=== PATIENT | male | born 1945 | race Caucasian/White ===

== ENCOUNTER 2020-10-13 16:17 | Inpatient (IN) | payer MEDICARE ==
[~2020-10-13] VITALS: Ht 165.1 cm; Wt 80.8 kg
--- NOTE | 2020-10-13 16:34 | NUR ---
TASK RN: PT BIB FRIEND VIA POV. PER PT "5CM INTRA ABDOMNINAL ABCESS. 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 PAIN IN PUBIC AREA SINCE "LAST ." NO ABDOMINAL SURGICAL HISTORY. PT RESTING IN [place] [facility] AT THIS TIME, MONITORING IN PLACE, NO NEEDS PER PT, WCTM.
--- NOTE | 2020-10-13 16:50 | NUR ---
REPORT FROM JHON MARINELLI.
--- NOTE | 2020-10-13 17:01 | NUR ---
PT RESTING COMFORTABLY IN [facility]. WARM BLANKETS PROVIDED. CALL LIGHT WITHIN REACH. VITALS UPDATED. AWAITING PROVIDER FOR EVALUATION.
[2020-10-13] MEDS ORDERED: METRONIDAZOLE PMX 500MG/100ML 100 ML IV ONE (18:30)
[2020-10-13] MEDS ORDERED: CEFOTETAN PMX 1GM/50ML 50 ML IV ONE (18:30)
--- NOTE | 2020-10-13 18:57 | NUR ---
report to Estella MARINELLI.
--- NOTE | 2020-10-13 18:58 | NUR ---
BEDSIDE REPORT FROM LOURDES/ GILES [facility] AND GRAVEL ROOFER OF CARE AT THIS TIME
--- NOTE | 2020-10-13 19:01 | NUR ---
CONVERSATION WITH MARCO, ADMITTING PROVIDER. STS WILL ORDER CULTURES PRIOR TO ABX START. ORDERING AT THIS TIME.
--- NOTE | 2020-10-13 19:22 | NUR ---
ABX STARTED AT THIS TIME CULTURES DRAWN X2
--- NOTE | 2020-10-13 19:34 | NUR ---
REPORT TO POLY MARINELLI PT READY FOR TRANSFER TO ROOM 348 AT THIS TIME
[2020-10-13 19:47] VITALS: BP 177/89
[2020-10-13] MEDS ORDERED: SODIUM CHLORIDE 0.9% 1,000 ML IV SCH (20:00)
[2020-10-13] MEDS: METRONIDAZOLE PMX 500MG/100ML 100 ML IV SCH (20:24)
[2020-10-13 20:34] VITALS: BP 165/82
[2020-10-13] MEDS: hydrALAzine 20 MG/ML, 1ML IV PRN (20:40)
[2020-10-13 21:20] VITALS: BP 156/72
[2020-10-13 21:45] LABS: MICROSCOPIC INDICATED
[2020-10-13] MEDS ORDERED: OMNIPAQUE 350 MG/ML, 100ML BOTTLE ONE (22:23)
[2020-10-13] MEDS: morphine SULFATE 10 MG/ML, 1ML IVPush PRN (22:38)
[2020-10-14 01:08] VITALS: BP 157/71
[2020-10-14] MEDS: METRONIDAZOLE PMX 500MG/100ML 100 ML IV SCH ×3 (04:40→21:09)
[2020-10-14 06:02] LABS: BASOPHILS % (AUTO) 1 % (0-1); EOSINOPHILS % (AUTO) 6 % (1-7); LYMPHOCYTES % (AUTO) 22 % (22-44); MEAN CORPUSCULAR HEMOGLOBIN 28.1 pg (27.5-34.5); MEAN CORPUSCULAR HGB CONC 33.9 g/dL (33.2-36.2); MEAN PLATELET VOLUME 7.3 fL (7.4-10.4); MONOCYTES % (AUTO) 7 % (2-9); NEUTROPHILS % (AUTO) 64 % (42-75); PLATELET COUNT 436 x10^3/uL (130-400); RED BLOOD COUNT 3.99 x10^6/uL (4.38-5.82); RED CELL DISTRIBUTION WIDTH 14.9 % (9.4-14.8)
[2020-10-14 06:05] LABS: MD NO
[2020-10-14 06:18] LABS: ANION GAP 10 mmol/L (5-15); CALCIUM 8.9 mg/dL (8.5-10.1); CHLORIDE 108 mmol/L (98-107)
[2020-10-14 06:19] LABS: CREATININE 0.88 mg/dL (0.7-1.3)
[2020-10-14] MEDS: morphine SULFATE 10 MG/ML, 1ML IVPush PRN ×2 (06:27→13:08)
[2020-10-14 07:07] VITALS: BP 155/77
[2020-10-14] MEDS: CARVEDILOL 3.125 MG TABLET PO SCH ×2 (07:52→17:22)
[2020-10-14] MEDS: CEFOTETAN PMX 1GM/50ML 50 ML IV SCH ×2 (07:52→19:41)
[2020-10-14] MEDS: ENOXAPARIN 40 MG/0.4 ML SQ SCH (07:53)
[2020-10-14 12:52] VITALS: BP 161/78
[2020-10-14 17:21] VITALS: BP 159/70
[2020-10-14 18:37] LABS: OCCULT BLOOD POSITIVE (NEGATIVE)
[2020-10-14 19:10] VITALS: BP 139/82
[2020-10-15] MEDS: ACETAMINOPHEN 325 MG TABLET PO PRN (00:50)
[2020-10-15 00:51] VITALS: BP 157/78
[2020-10-15] MEDS: METRONIDAZOLE PMX 500MG/100ML 100 ML IV SCH ×3 (04:32→20:56)
[2020-10-15 05:37] LABS: BASOPHILS % (AUTO) 2 % (0-1); EOSINOPHILS % (AUTO) 7 % (1-7); LYMPHOCYTES % (AUTO) 29 % (22-44); MEAN PLATELET VOLUME 7.3 fL (7.4-10.4); MONOCYTES % (AUTO) 10 % (2-9); NEUTROPHILS % (AUTO) 53 % (42-75); PLATELET COUNT 391 x10^3/uL (130-400); RED BLOOD COUNT 3.92 x10^6/uL (4.38-5.82)
[2020-10-15 05:39] LABS: MD NO
[2020-10-15 05:46] LABS: ALANINE AMINOTRANSFERASE 11 U/L (12-78); ALBUMIN 2.6 g/dL (3.4-5.0); ANION GAP 9 mmol/L (5-15); CALCIUM 8.4 mg/dL (8.5-10.1); CHLORIDE 111 mmol/L (98-107); CREATININE 0.91 mg/dL (0.7-1.3)
[2020-10-15 05:50] LABS: ALKALINE PHOSPHATASE 68 U/L (45-117); BILIRUBIN,TOTAL 0.2 mg/dL (0.2-1.0); TOTAL PROTEIN 5.6 g/dL (6.4-8.2)
[2020-10-15] MEDS: CARVEDILOL 3.125 MG TABLET PO SCH (06:07)
[2020-10-15] MEDS: SODIUM CHLORIDE 0.9% 1,000 ML IV SCH (07:50)
[2020-10-15] MEDS: ENOXAPARIN 40 MG/0.4 ML SQ SCH (07:51)
[2020-10-15] MEDS: CEFOTETAN PMX 1GM/50ML 50 ML IV SCH ×2 (07:51→19:55)
[2020-10-15 07:59] VITALS: BP 158/84
[2020-10-15 12:53] VITALS: BP 175/77
[2020-10-15] MEDS: CARVEDILOL 6.25 MG TABLET PO SCH (18:12)
[2020-10-15 18:13] VITALS: BP 152/80
[2020-10-16] MEDS: SODIUM CHLORIDE 0.9% 1,000 ML IV SCH ×2 (00:15→17:10)
[2020-10-16] MEDS: ACETAMINOPHEN 325 MG TABLET PO PRN ×2 (00:20→20:30)
[2020-10-16 00:48] VITALS: BP 142/76
[2020-10-16] MEDS: METRONIDAZOLE PMX 500MG/100ML 100 ML IV SCH ×3 (04:25→20:31)
[2020-10-16] MEDS: CARVEDILOL 6.25 MG TABLET PO SCH ×2 (05:38→17:06)
[2020-10-16 07:00] VITALS: BP 137/71
[2020-10-16] MEDS: CEFOTETAN PMX 1GM/50ML 50 ML IV SCH ×2 (07:49→19:31)
[2020-10-16] MEDS: ENOXAPARIN 40 MG/0.4 ML SQ SCH ×2 (07:49→23:26)
[2020-10-16] MEDS: MAGNESIUM CITRATE 300ML ORAL SOL PO SCH ×2 (12:41→18:00)
[2020-10-16 13:47] VITALS: BP 167/90
[2020-10-16] MEDS: hydrALAzine 20 MG/ML, 1ML IV PRN (13:59)
[2020-10-16 15:41] VITALS: BP 163/88
[2020-10-16] MEDS: ONDANSETRON 2MG/ML, 2ML IVPush PRN (15:57)
[2020-10-16 17:06] VITALS: BP 142/79
[2020-10-16 19:42] VITALS: BP 135/79
[2020-10-17 00:05] VITALS: BP 120/70
[2020-10-17] MEDS: METRONIDAZOLE PMX 500MG/100ML 100 ML IV SCH ×3 (04:07→22:49)
[2020-10-17] MEDS: morphine SULFATE 10 MG/ML, 1ML IVPush PRN (04:07)
[2020-10-17] MEDS: CARVEDILOL 6.25 MG TABLET PO SCH ×2 (05:59→17:04)
[2020-10-17 06:59] VITALS: BP 128/72
[2020-10-17 07:37] LABS: INTERNATIONAL NORMALIZED RATIO 1.2 (0.93-1.1); PROTHROMBIN TIME 12.8 Seconds (9.6-11.5)
[2020-10-17] MEDS: CEFOTETAN PMX 1GM/50ML 50 ML IV SCH ×2 (08:24→20:22)
[2020-10-17] MEDS ORDERED: CHLORHEXIDINE 15 ML UDC ONE (09:43)
[2020-10-17] MEDS ORDERED: CHLORHEXIDINE 15 ML UDC MM STA (09:44)
[2020-10-17] MEDS ORDERED: FENTANYL PF 250 MCG/5ML ONE (10:33)
[2020-10-17] MEDS ORDERED: MIDAZOLAM 1 MG/ML, 2ML ONE (10:33)
[2020-10-17] MEDS: SODIUM CHLORIDE 0.9% 1,000 ML IV SCH ×2 (10:40→20:23)
[2020-10-17] MEDS ORDERED: HYDROmorphone 1 MG/ML, 1ML INJ IVPush PRN (11:30)
[2020-10-17] MEDS ORDERED: MEPERIDINE/PF 25MG/0.5ML IVPush PRN (11:30)
[2020-10-17] MEDS ORDERED: OXYcodone 5 MG/5 ML ORAL.SOL UDC PO PRN (11:30)
[2020-10-17] MEDS ORDERED: DIAZEPAM 5 MG/ML, 2ML IVPush PRN (11:30)
[2020-10-17] MEDS ORDERED: ONDANSETRON 2MG/ML, 2ML IVPush PRN (11:30)
[2020-10-17] MEDS ORDERED: hydrALAzine 20 MG/ML, 1ML IV PRN (11:30)
[2020-10-17] MEDS ORDERED: PROMETHAZINE 25 MG/ML, 1ML IVPush PRN (11:30)
[2020-10-17] MEDS ORDERED: ACETAMINOPHEN 325 MG TABLET PO PRN (11:30)
[2020-10-17] MEDS ORDERED: DIPHENHYDRAMINE 50 MG/ML, 1ML IVPush PRN (11:30)
[2020-10-17] MEDS ORDERED: LABETALOL 5MG/ML, 20ML IV PRN (11:30)
[2020-10-17] MEDS ORDERED: ONDANSETRON 2MG/ML, 2ML ONE (11:46)
[2020-10-17] MEDS ORDERED: CEFOTETAN 2 GM ONE (11:46)
[2020-10-17] MEDS ORDERED: LIDOCAINE-MPF 2% ,5ML ONE (11:46)
[2020-10-17] MEDS ORDERED: ROCURONIUM 10MG/ML,5ML ONE (11:46)
[2020-10-17] MEDS ORDERED: PROPOFOL 10 MG/ML, 20ML ONE (11:46)
[2020-10-17] MEDS ORDERED: NEOSTIGMINE 1 MG/ML, 10ML ONE (11:47)
[2020-10-17] MEDS ORDERED: GLYCOPYRROLATE 0.2MG/1ML, 5ML ONE (11:47)
[2020-10-17] MEDS ORDERED: FENTANYL PF 100 MCG/2ML ONE (12:13)
[2020-10-17] MEDS ORDERED: OXYcodone 5 MG/5 ML ORAL.SOL UDC ONE (12:13)
[2020-10-17] MEDS: FENTANYL PF 100 MCG/2ML IV PRN ×2 (12:15→12:20)
[2020-10-17] MEDS: ACETAMINOPHEN 325 MG TABLET PO PRN (12:30)
[2020-10-17 14:26] VITALS: BP 144/73
[2020-10-17 18:50] VITALS: BP 120/74
[2020-10-18 00:05] VITALS: BP 127/69
[2020-10-18 03:34] VITALS: BP 131/78
[2020-10-18] MEDS: CARVEDILOL 6.25 MG TABLET PO SCH ×2 (06:25→16:34)
[2020-10-18] MEDS: METRONIDAZOLE PMX 500MG/100ML 100 ML IV SCH ×3 (06:25→23:01)
[2020-10-18 06:55] VITALS: BP 148/72
[2020-10-18] MEDS: CEFOTETAN PMX 1GM/50ML 50 ML IV SCH ×2 (07:48→20:57)
[2020-10-18] MEDS: ENOXAPARIN 40 MG/0.4 ML SQ SCH (07:48)
[2020-10-18] MEDS: ONDANSETRON 2MG/ML, 2ML IVPush PRN ×2 (10:09→16:29)
[2020-10-18 14:16] VITALS: BP 168/80
[2020-10-18] MEDS: SODIUM CHLORIDE 0.9% 1,000 ML IV SCH (14:17)
[2020-10-18 16:34] VITALS: BP 174/84
[2020-10-18] MEDS: ACETAMINOPHEN 325 MG TABLET PO SCH ×2 (16:58→23:02)
[2020-10-18 18:37] VITALS: BP 138/75
[2020-10-19] MEDS: ONDANSETRON 2MG/ML, 2ML IVPush PRN ×2 (00:14→06:08)
[2020-10-19 03:07] VITALS: BP 158/85
[2020-10-19] MEDS: ACETAMINOPHEN 325 MG TABLET PO SCH ×4 (06:07→21:06)
[2020-10-19] MEDS: CARVEDILOL 6.25 MG TABLET PO SCH (06:08)
[2020-10-19] MEDS: CALCIUM CARBONATE 500 MG TAB.CHEW PO PRN ×2 (06:09→16:59)
[2020-10-19] MEDS: METRONIDAZOLE PMX 500MG/100ML 100 ML IV SCH ×3 (06:11→23:16)
[2020-10-19 07:15] VITALS: BP 146/73
[2020-10-19] MEDS: ENOXAPARIN 40 MG/0.4 ML SQ SCH (07:59)
[2020-10-19] MEDS: CEFOTETAN PMX 1GM/50ML 50 ML IV SCH ×2 (07:59→21:05)
[2020-10-19] MEDS: SODIUM CHLORIDE 0.9% 1,000 ML IV SCH (08:00)
[2020-10-19 10:42] LABS: BASOPHILS % (AUTO) 1 % (0-1); EOSINOPHILS % (AUTO) 0 % (1-7); LYMPHOCYTES % (AUTO) 11 % (22-44); MD NO; MEAN CORPUSCULAR HGB CONC 33.7 g/dL (33.2-36.2); MEAN PLATELET VOLUME 7.9 fL (7.4-10.4); MONOCYTES % (AUTO) 6 % (2-9); NEUTROPHILS % (AUTO) 82 % (42-75); PLATELET COUNT 358 x10^3/uL (130-400); RED BLOOD COUNT 4.07 x10^6/uL (4.38-5.82); RED CELL DISTRIBUTION WIDTH 16.4 % (9.4-14.8)
[2020-10-19 10:49] LABS: ALANINE AMINOTRANSFERASE 9 U/L (12-78); ALBUMIN 2.3 g/dL (3.4-5.0); ANION GAP 7 mmol/L (5-15); CALCIUM 8.7 mg/dL (8.5-10.1); CHLORIDE 108 mmol/L (98-107); CREATININE 1.02 mg/dL (0.7-1.3)
[2020-10-19 10:51] LABS: ALKALINE PHOSPHATASE 53 U/L (45-117); BILIRUBIN,TOTAL 0.2 mg/dL (0.2-1.0); TOTAL PROTEIN 5.2 g/dL (6.4-8.2)
[2020-10-19] MEDS: FAMOTIDINE 10 MG TAB PO SCH ×2 (11:45→21:09)
[2020-10-19] MEDS ORDERED: TAMS-11 PO (13:00)
[2020-10-19] MEDS ORDERED: CIPR250T27 PO (13:00)
[2020-10-19] MEDS ORDERED: LOSA50TA14 PO (13:00)
[2020-10-19] MEDS: POTASSIUM CHLORIDE 20 MEQ in SODIUM CHLORIDE 0.45% 1,000 ML IV SCH (13:19)
[2020-10-19 14:05] VITALS: BP 158/79
[2020-10-19] MEDS: CARVEDILOL 12.5 MG TABLET PO SCH (16:57)
[2020-10-19 19:22] VITALS: BP 149/77
[2020-10-20 01:14] VITALS: BP 159/78
[2020-10-20] MEDS: ACETAMINOPHEN 325 MG TABLET PO SCH ×4 (03:48→20:31)
[2020-10-20 05:41] LABS: BASOPHILS % (AUTO) 1 % (0-1); EOSINOPHILS % (AUTO) 2 % (1-7); LYMPHOCYTES % (AUTO) 13 % (22-44); MEAN CORPUSCULAR HEMOGLOBIN 28.3 pg (27.5-34.5); MEAN CORPUSCULAR HGB CONC 34.3 g/dL (33.2-36.2); MEAN PLATELET VOLUME 7.9 fL (7.4-10.4); MONOCYTES % (AUTO) 8 % (2-9); NEUTROPHILS % (AUTO) 76 % (42-75); PLATELET COUNT 334 x10^3/uL (130-400); RED BLOOD COUNT 3.76 x10^6/uL (4.38-5.82); RED CELL DISTRIBUTION WIDTH 16.8 % (9.4-14.8)
[2020-10-20 05:42] LABS: MD NO
[2020-10-20] MEDS: CARVEDILOL 12.5 MG TABLET PO SCH ×2 (05:45→18:09)
[2020-10-20] MEDS: CALCIUM CARBONATE 500 MG TAB.CHEW PO PRN (05:45)
[2020-10-20] MEDS: POTASSIUM CHLORIDE 20 MEQ in SODIUM CHLORIDE 0.45% 1,000 ML IV SCH ×2 (05:45→23:00)
[2020-10-20 05:53] LABS: ALBUMIN 2.1 g/dL (3.4-5.0); ANION GAP 8 mmol/L (5-15); CALCIUM 8.6 mg/dL (8.5-10.1); CHLORIDE 106 mmol/L (98-107)
[2020-10-20 05:56] LABS: ALANINE AMINOTRANSFERASE 7 U/L (12-78); ALKALINE PHOSPHATASE 46 U/L (45-117); BILIRUBIN,TOTAL 0.3 mg/dL (0.2-1.0); CREATININE 0.79 mg/dL (0.7-1.3); TOTAL PROTEIN 4.8 g/dL (6.4-8.2)
[2020-10-20] MEDS: ONDANSETRON 2MG/ML, 2ML IVPush PRN (07:01)
[2020-10-20] MEDS: METRONIDAZOLE PMX 500MG/100ML 100 ML IV SCH ×3 (07:01→23:00)
[2020-10-20 07:56] VITALS: BP 160/91
[2020-10-20] MEDS: ENOXAPARIN 40 MG/0.4 ML SQ SCH (08:00)
[2020-10-20] MEDS: POTASSIUM CHLORIDE 20 MEQ TAB.ER.PRT PO SCH ×3 (08:00→15:35)
[2020-10-20] MEDS: FAMOTIDINE 10 MG TAB PO SCH ×2 (09:36→20:30)
[2020-10-20] MEDS: MORPHINE SULFATE 4 MG/ML, 1ML IVPush PRN (09:36)
[2020-10-20] MEDS: CEFOTETAN PMX 1GM/50ML 50 ML IV SCH ×2 (09:37→20:30)
[2020-10-20 12:08] VITALS: BP 144/79
[2020-10-20 15:33] VITALS: BP 169/79
[2020-10-20 18:06] VITALS: BP 157/69
[2020-10-20 19:31] VITALS: BP 125/74
[2020-10-21] VITALS (7 sets, daily range): BP systolic 139–154; BP diastolic 69–92
[2020-10-21] MEDS: ACETAMINOPHEN 325 MG TABLET PO SCH ×5 (03:15→23:07)
[2020-10-21 05:20] LABS: BASOPHILS % (AUTO) 1 % (0-1); EOSINOPHILS % (AUTO) 1 % (1-7); LYMPHOCYTES % (AUTO) 10 % (22-44); MEAN CORPUSCULAR HGB CONC 35.1 g/dL (33.2-36.2); MEAN PLATELET VOLUME 7.8 fL (7.4-10.4); MONOCYTES % (AUTO) 9 % (2-9); NEUTROPHILS % (AUTO) 80 % (42-75); PLATELET COUNT 334 x10^3/uL (130-400); RED CELL DISTRIBUTION WIDTH 16.7 % (9.4-14.8)
[2020-10-21 05:22] LABS: MD NO
[2020-10-21 05:31] LABS: ANION GAP 5 mmol/L (5-15); CALCIUM 8.5 mg/dL (8.5-10.1); CHLORIDE 106 mmol/L (98-107); CREATININE 0.73 mg/dL (0.7-1.3)
[2020-10-21] MEDS: CARVEDILOL 12.5 MG TABLET PO SCH ×2 (06:30→16:48)
[2020-10-21] MEDS: METRONIDAZOLE PMX 500MG/100ML 100 ML IV SCH (06:30)
[2020-10-21] MEDS: FAMOTIDINE 10 MG TAB PO SCH ×2 (08:15→20:25)
[2020-10-21] MEDS: CEFOTETAN PMX 1GM/50ML 50 ML IV SCH (08:15)
[2020-10-21] MEDS: ENOXAPARIN 40 MG/0.4 ML SQ SCH (08:16)
[2020-10-21] MEDS: HYDROcodone/APAP 5/325 TABLET PO PRN ×3 (11:29→21:05)
[2020-10-21] MEDS: POTASSIUM CHLORIDE 20 MEQ in SODIUM CHLORIDE 0.45% 1,000 ML IV SCH (16:53)
[2020-10-21] MEDS: ONDANSETRON 2MG/ML, 2ML IVPush PRN (21:01)
[2020-10-21] MEDS: CALCIUM CARBONATE 500 MG TAB.CHEW PO PRN (21:15)
[2020-10-21] MEDS: morphine SULFATE 10 MG/ML, 1ML IVPush PRN ×2 (23:07→23:28)
[2020-10-22] MEDS: morphine SULFATE 10 MG/ML, 1ML IVPush PRN ×2 (02:42→05:36)
[2020-10-22] MEDS: ACETAMINOPHEN 325 MG TABLET PO SCH ×4 (05:37→23:00)
[2020-10-22] MEDS: CARVEDILOL 12.5 MG TABLET PO SCH ×2 (05:37→17:13)
[2020-10-22] MEDS: POTASSIUM CHLORIDE 20 MEQ in SODIUM CHLORIDE 0.45% 1,000 ML IV SCH (06:15)
[2020-10-22 07:27] VITALS: BP 139/77
[2020-10-22 07:57] LABS: BASOPHILS % (AUTO) 1 % (0-1); EOSINOPHILS % (AUTO) 0 % (1-7); LYMPHOCYTES % (AUTO) 17 % (22-44); MEAN CORPUSCULAR HEMOGLOBIN 28.1 pg (27.5-34.5); MEAN CORPUSCULAR HGB CONC 34.1 g/dL (33.2-36.2); MEAN PLATELET VOLUME 7.9 fL (7.4-10.4); MONOCYTES % (AUTO) 9 % (2-9); NEUTROPHILS % (AUTO) 73 % (42-75); PLATELET COUNT 336 x10^3/uL (130-400); RED BLOOD COUNT 3.49 x10^6/uL (4.38-5.82); RED CELL DISTRIBUTION WIDTH 17.5 % (9.4-14.8)
[2020-10-22] MEDS ORDERED: POTASSIUM CHLORIDE 20 MEQ TAB.ER.PRT PO SCH (08:00)
[2020-10-22 08:02] LABS: MD NO
[2020-10-22 08:08] LABS: ANION GAP 7 mmol/L (5-15); CALCIUM 8.7 mg/dL (8.5-10.1); CHLORIDE 105 mmol/L (98-107); CREATININE 0.67 mg/dL (0.7-1.3)
[2020-10-22] MEDS: FAMOTIDINE 10 MG TAB PO SCH ×2 (08:50→21:00)
[2020-10-22] MEDS: ENOXAPARIN 40 MG/0.4 ML SQ SCH (08:52)
[2020-10-22 14:18] VITALS: BP 110/74
[2020-10-22 17:11] VITALS: BP 160/80
[2020-10-22 20:52] VITALS: BP 176/86
[2020-10-22] MEDS: HYDROcodone/APAP 5/325 TABLET PO PRN (21:00)
[2020-10-22] MEDS: CALCIUM CARBONATE 500 MG TAB.CHEW PO PRN (21:01)
[2020-10-23] MEDS ORDERED: ACETAMINOPHEN 650 MG/20.3 ML UDC ONE (00:30)
[2020-10-23 00:35] VITALS: BP 170/90
[2020-10-23] MEDS: ACETAMINOPHEN 325 MG TABLET PO SCH ×4 (05:08→21:35)
[2020-10-23] MEDS: CARVEDILOL 12.5 MG TABLET PO SCH (05:08)
[2020-10-23] MEDS: HYDROcodone/APAP 5/325 TABLET PO PRN ×2 (05:09→14:51)
[2020-10-23 05:27] LABS: BASOPHILS % (AUTO) 1 % (0-1); EOSINOPHILS % (AUTO) 7 % (1-7); LYMPHOCYTES % (AUTO) 29 % (22-44); MEAN CORPUSCULAR HGB CONC 34.1 g/dL (33.2-36.2); MONOCYTES % (AUTO) 9 % (2-9); NEUTROPHILS % (AUTO) 55 % (42-75); PLATELET COUNT 360 x10^3/uL (130-400); RED BLOOD COUNT 3.59 x10^6/uL (4.38-5.82); RED CELL DISTRIBUTION WIDTH 17.5 % (9.4-14.8)
[2020-10-23 05:30] LABS: MD NO
[2020-10-23 05:36] LABS: ANION GAP 7 mmol/L (5-15); CALCIUM 8.5 mg/dL (8.5-10.1); CHLORIDE 107 mmol/L (98-107); CREATININE 0.72 mg/dL (0.7-1.3)
[2020-10-23] MEDS ORDERED: CARVEDILOL 12.5 MG TABLET PO ONE (07:00)
[2020-10-23] MEDS: POTASSIUM CHLORIDE 20 MEQ TAB.ER.PRT PO SCH ×2 (08:41→16:57)
[2020-10-23] MEDS: FAMOTIDINE 10 MG TAB PO SCH ×2 (08:41→21:34)
[2020-10-23] MEDS: ENOXAPARIN 40 MG/0.4 ML SQ SCH (08:42)
[2020-10-23 08:56] VITALS: BP 164/77
[2020-10-23 14:45] VITALS: BP 164/79
[2020-10-23] MEDS: CARVEDILOL 25 MG TABLET PO SCH (16:57)
[2020-10-23] MEDS: CALCIUM CARBONATE 500 MG TAB.CHEW PO PRN (17:01)
[2020-10-23 18:36] VITALS: BP 156/71
[2020-10-24 02:28] VITALS: BP 183/74
[2020-10-24] MEDS: ONDANSETRON 2MG/ML, 2ML IVPush PRN (03:35)
[2020-10-24] MEDS: ACETAMINOPHEN 325 MG TABLET PO SCH ×4 (05:00→23:00)
[2020-10-24] MEDS: CALCIUM CARBONATE 500 MG TAB.CHEW PO PRN (05:17)
[2020-10-24 05:32] LABS: ANION GAP 7 mmol/L (5-15); CALCIUM 8.6 mg/dL (8.5-10.1); CHLORIDE 106 mmol/L (98-107)
[2020-10-24 05:34] LABS: CREATININE 0.64 mg/dL (0.7-1.3)
[2020-10-24 07:04] VITALS: BP 164/85
[2020-10-24] MEDS: MORPHINE SULFATE 4 MG/ML, 1ML IVPush PRN (07:30)
[2020-10-24] MEDS ORDERED: MAGNESIUM SULFATE PMX 4GM/100M 100 ML IVPB ONE (08:00)
[2020-10-24] MEDS ORDERED: POTASSIUM CHLORIDE 40 MEQ in SODIUM CHLORIDE 0.9% 500 ML IV ONE (08:00)
[2020-10-24] MEDS: CARVEDILOL 25 MG TABLET PO SCH ×2 (08:36→16:36)
[2020-10-24] MEDS: FAMOTIDINE 10 MG TAB PO SCH ×2 (08:37→20:23)
[2020-10-24] MEDS: ENOXAPARIN 40 MG/0.4 ML SQ SCH (08:40)
[2020-10-24 13:47] VITALS: BP 163/92
[2020-10-24 16:35] VITALS: BP 169/82
[2020-10-24 18:06] VITALS: BP 143/78
[2020-10-24 18:47] VITALS: BP 161/78
[2020-10-25 02:15] VITALS: BP 162/82
[2020-10-25] MEDS: ACETAMINOPHEN 325 MG TABLET PO SCH ×2 (05:00→11:00)
[2020-10-25 05:06] LABS: ANION GAP 6 mmol/L (5-15); CALCIUM 8.4 mg/dL (8.5-10.1); CHLORIDE 109 mmol/L (98-107); CREATININE 0.76 mg/dL (0.7-1.3)
[2020-10-25] MEDS: CARVEDILOL 25 MG TABLET PO SCH (05:25)
[2020-10-25] MEDS ORDERED: PANTOPRAZOLE 40MG TABLET PO SCH (06:00)
[2020-10-25 08:08] VITALS: BP 159/89
[2020-10-25] MEDS: FAMOTIDINE 10 MG TAB PO SCH (09:55)
[2020-10-25] MEDS: ENOXAPARIN 40 MG/0.4 ML SQ SCH (09:55)
[2020-10-25] MEDS ORDERED: PANT40TA6 PO (12:28)
[2020-10-25] MEDS ORDERED: CARV25TA12 PO (12:28)
[2020-10-25] MEDS ORDERED: FAMO10TA13 PO (12:28)
== END 2020-10-25 14:02 | disposition home or self-care (01) | DRG 329 ==
LOC: ED 18:35 → EDIP 18:45 → 3N 19:54 → 4NE 10-17 13:29 → 4NW 10-21 12:35
PROVIDERS: ADMIT Internal Medicine; ATTEND Internal Medicine
PROC: 0D1E0Z4 Bypass Large Intestine to Cutaneous, Open Approach (ICD-10-PCS; 2020-10-17)
PROC: 0DBN0ZZ Excision of Sigmoid Colon, Open Approach (ICD-10-PCS; principal; 2020-10-17 10:30)
DX: C18.7 Malignant neoplasm of sigmoid colon (principal); K65.1 Peritoneal abscess; K57.21 Diverticulitis of large intestine with perforation and abscess with bleeding; N32.1 Vesicointestinal fistula; K56.7 Ileus, unspecified; D63.8 Anemia in other chronic diseases classified elsewhere; E83.51 Hypocalcemia; G47.00 Insomnia, unspecified; I10 Essential (primary) hypertension; N40.0 Benign prostatic hyperplasia without lower urinary tract symptoms; N43.41 Spermatocele of epididymis, single; Z88.0 Allergy status to penicillin; Z90.49 Acquired absence of other specified parts of digestive tract; Z93.3 Colostomy status; M79.671 Pain in right foot; N44.2 Benign cyst of testis; Z88.8 Allergy status to other drugs, medicaments and biological substances; Z20.822 Contact with and (suspected) exposure to COVID-19
CPT/HCPCS: 36415; 74177; 76870; 80048; 80053; 81001; 82105; 82272; 82330; 82378; 83615; 83735; 84100; 85025; 85610; 86900; 87040; 87070; 87075; 87086; 87205; 87635; 88112; 88305; 88307; 88329; 93005; 96374; 99285; C1729; G0378; J1650; J2250; J2270; J2405; J2704; J2710; J3010; J3480; Q9967; J0360; J3475; J7030; J7040

== ENCOUNTER 2021-01-18 12:46 | Day surgery (SDC) | payer MEDICARE ==
[~2021-01-18] VITALS: Ht 162.6 cm; Wt 78.8 kg
[~2021-01-18 12:46] MED LIST: CARV25TA12 PO; CIPR250T27 PO; FAMO10TA13 PO; LOSA50TA14 PO; PANT40TA6 PO; TAMS-11 PO
[2021-01-18 13:33] VITALS: BP 158/88
[2021-01-18] MEDS ORDERED: BLOOD PRESSURE MED PO (13:40)
[2021-01-18] MEDS ORDERED: ANTIBIOTIC PO (13:40)
[2021-01-18] MEDS ORDERED: LACTATED RINGERS 1,000 ML IV SCH (14:00)
[2021-01-18] MEDS ORDERED: CHLORHEXIDINE 15 ML UDC PO ONE (14:00)
[2021-01-18] MEDS ORDERED: FENTANYL PF 250 MCG/5ML ONE (14:55)
[2021-01-18] MEDS ORDERED: CEFAZOLIN 1,000 MG ONE (14:55)
[2021-01-18] MEDS ORDERED: PROPOFOL 10 MG/ML, 20ML ONE (14:55)
[2021-01-18] MEDS ORDERED: METHOCARBAMOL 1,000 MG in DEXTROSE 5% 100 ML IV PRN (15:30)
[2021-01-18] MEDS ORDERED: EPHEDRINE 50 MG/ML, 1ML IM PRN (15:30)
[2021-01-18] MEDS ORDERED: LORazepam 2 MG/ML, 1ML IVPush PRN (15:30)
[2021-01-18] MEDS ORDERED: MEPERIDINE/PF 25MG/0.5ML IVPush PRN (15:30)
[2021-01-18] MEDS ORDERED: FENTANYL PF 100 MCG/2ML IV PRN (15:30)
[2021-01-18] MEDS ORDERED: hydrALAzine 20 MG/ML, 1ML IV PRN (15:30)
[2021-01-18] MEDS ORDERED: LABETALOL 5MG/ML, 20ML IV PRN (15:30)
[2021-01-18] MEDS ORDERED: ACETAMINOPHEN 325 MG TABLET PO PRN (15:30)
[2021-01-18] MEDS ORDERED: ONDANSETRON 2MG/ML, 2ML IVPush PRN (15:30)
[2021-01-18] MEDS ORDERED: PROMETHAZINE 25 MG/ML, 1ML IVPush PRN (15:30)
[2021-01-18] MEDS ORDERED: OXYcodone 5 MG/5 ML ORAL.SOL UDC PO PRN (15:30)
[2021-01-18] MEDS ORDERED: HYDROmorphone 1 MG/ML, 1ML INJ IVPush PRN (15:30)
== END 2021-01-18 16:45 | disposition home or self-care (01) ==
LOC: OR 12:46
PROVIDERS: ATTEND Surgery
DX: C18.7 Malignant neoplasm of sigmoid colon (principal); D12.3 Benign neoplasm of transverse colon; I10 Essential (primary) hypertension; Z79.899 Other long term (current) drug therapy; Z88.0 Allergy status to penicillin; Z90.49 Acquired absence of other specified parts of digestive tract; Z93.3 Colostomy status
CPT/HCPCS: 36415; 45385; 82378; 88305; 93005; J0690; J2704; J3010; J7120

== ENCOUNTER 2021-04-07 07:15 | Day surgery (SDC) | payer MEDICARE ==
[~2021-04-07] VITALS: Ht 166.4 cm; Wt 79.2 kg
[~2021-04-07 07:15] MED LIST changes: +ANTIBIOTIC PO; +BLOOD PRESSURE MED PO
[2021-04-07 07:58] VITALS: BP 153/86
[2021-04-07] MEDS ORDERED: CHLORHEXIDINE 15 ML UDC PO ONE (08:00)
[2021-04-07] MEDS ORDERED: LACTATED RINGERS 1,000 ML IV SCH (08:00)
[2021-04-07] MEDS ORDERED: AMOX-291 PO (08:04)
[2021-04-07] MEDS ORDERED: CHLORHEXIDINE 15 ML UDC ONE (08:07)
[2021-04-07] MEDS ORDERED: CLIN150C15 PO (08:25)
[2021-04-07] MEDS ORDERED: BUPIVACAINE/PF 0.5% ONE (09:31)
[2021-04-07] MEDS ORDERED: HEPARIN 1,000 UNITS/ML, 10ML ONE (09:31)
[2021-04-07] MEDS ORDERED: FENTANYL PF 100 MCG/2ML ONE (10:15)
[2021-04-07] MEDS ORDERED: LIDOCAINE-MPF 2% ,5ML ONE (10:27)
[2021-04-07] MEDS ORDERED: ONDANSETRON 2MG/ML, 2ML ONE (10:32)
[2021-04-07] MEDS ORDERED: ROCURONIUM 10MG/ML,5ML ONE (10:32)
[2021-04-07] MEDS ORDERED: PROPOFOL 10 MG/ML, 20ML ONE (10:32)
[2021-04-07] MEDS ORDERED: CEFAZOLIN 1,000 MG ONE (10:32)
[2021-04-07] MEDS ORDERED: DEXAMETHASONE 4 MG/ML, 1ML ONE (10:32)
[2021-04-07] MEDS ORDERED: EPHEDRINE 50 MG/ML, 1ML ONE (10:32)
[2021-04-07] MEDS ORDERED: SUCCINYLCHOLINE 20 MG/ML, 10ML ONE (10:32)
[2021-04-07] MEDS ORDERED: KETOROLAC 30 MG/1 ML ONE (10:34)
[2021-04-07] MEDS ORDERED: OXYC1TAB14 PO (10:57)
[2021-04-07] MEDS ORDERED: HYDROmorphone 1 MG/ML, 1ML INJ IVPush PRN (11:00)
[2021-04-07] MEDS ORDERED: FENTANYL PF 100 MCG/2ML IV PRN (11:00)
[2021-04-07] MEDS ORDERED: EPHEDRINE 50 MG/ML, 1ML IVPush PRN (11:00)
[2021-04-07] MEDS ORDERED: LABETALOL 5MG/ML, 20ML IV PRN (11:00)
[2021-04-07] MEDS ORDERED: PROMETHAZINE 25 MG/ML, 1ML IVPush PRN (11:00)
[2021-04-07] MEDS ORDERED: hydrALAzine 20 MG/ML, 1ML IV PRN (11:00)
[2021-04-07] MEDS ORDERED: OXYcodone 5 MG/5 ML ORAL.SOL UDC PO PRN (11:00)
[2021-04-07] MEDS ORDERED: ACETAMINOPHEN 325 MG TABLET PO PRN (11:00)
[2021-04-07] MEDS ORDERED: ONDANSETRON 2MG/ML, 2ML IVPush PRN (11:00)
[2021-04-07] MEDS ORDERED: LABETALOL 5MG/ML, 20ML ONE (11:08)
== END 2021-04-07 12:00 | disposition home or self-care (01) ==
LOC: OUT 07:15
PROVIDERS: ATTEND Surgery
DX: C20 Malignant neoplasm of rectum (principal); I10 Essential (primary) hypertension; N40.0 Benign prostatic hyperplasia without lower urinary tract symptoms; Z20.822 Contact with and (suspected) exposure to COVID-19; Z79.899 Other long term (current) drug therapy; Z88.0 Allergy status to penicillin; Z98.890 Other specified postprocedural states
CPT/HCPCS: 36561; 77001; 87635; C1788; J0330; J0690; J1100; J1644; J1885; J2405; J2704; J3010; J7120